=== PATIENT | male | born 1985 | race African-American/Black ===

== ENCOUNTER 2020-12-13 11:27 | Emergency (ER) | payer MEDICARE, MEDICAID ==
[~2020-12-13] VITALS: Ht 177.8 cm; Wt 77.0 kg
[2020-12-13] MEDS ORDERED: OLANZAPINE 10 MG/VIAL IM STA (12:12)
[2020-12-13] MEDS ORDERED: LORAZEPAM 2MG/ML CPJ IV STA (12:12)
[2020-12-13] MEDS ORDERED: DIPHENHYDRAMINE 50MG/ML VIAL IM STA (12:12)
[2020-12-13] MEDS ORDERED: LORAZEPAM 2MG/ML CPJ IM STA (12:12)
[2020-12-13] MEDS ORDERED: SODIUM CHLORIDE 0.9% 1,000 ML IV ONE (12:15)
[2020-12-13 14:38] LABS: CHLORIDE 112 mEq/L (98-107)
[2020-12-13 14:42] LABS: ETHANOL BLOOD < 10 mg/dL
[2020-12-13 15:04] LABS: BASOPHILS % 1.1 % (0.0-2.0); EOSINOPHILS % 1.4 % (0.0-5.0); HEMATOCRIT. 36.8 % (42.0-52.0); HEMOGLOBIN. 13.1 g/dL (14.0-18.0); MEAN CORPUSCULAR HEMOGLOBIN 32.2 pg (28.0-32.0); MEAN CORPUSCULAR VOLUME 90.6 fL (80.0-94.0); MONOCYTES % 7.8 % (2.0-8.0); NEUTROPHILS % 65.7 % (40.0-76.0); PLATELET 203 x1000/uL (130-400); RED BLOOD CELL COUNT 4.06 mill/uL (4.7-6.1); RED CELL DISTRIBUTION WIDTH 13.1 % (11.6-14.6)
[2020-12-13 15:20] LABS: CLARITY URINE CLEAR (CLEAR); COLOR URINE YELLOW (YELLOW); KETONES URINE NEGATIVE (NEGATIVE); LEUKOCYTE ESTERASE URINE NEGATIVE (NEGATIVE); NITRITE URINE NEGATIVE (NEGATIVE); OCCULT BLOOD URINE NEGATIVE (NEGATIVE); PH URINE 6.5 (4.5-8.0); PROTEIN URINE NEGATIVE (NEGATIVE); SPECIFIC GRAVITY URINE 1.007 (1.005-1.030); UROBILINOGEN URINE 0.2 E.U./dL (0.2-1.0)
[2020-12-13 15:39] LABS: *AMPHETAMINES SCREEN URINE NEGATIVE (NEGATIVE); *BARBITURATES SCREEN URINE NEGATIVE (NEGATIVE)
[2020-12-13 15:40] LABS: *BENZODIAZEPINES SCREEN URINE NEGATIVE (NEGATIVE); *COCAINE SCREEN URINE NEGATIVE (NEGATIVE); CANNABINOID URINE SCREEN NEGATIVE (NEGATIVE); METHADONE URINE SCREEN NEGATIVE (NEGATIVE); OPIATES URINE SCREEN NEGATIVE (NEGATIVE); PHENCYCLIDINE URINE SCREEN NEGATIVE (NEGATIVE)
[2020-12-14 08:00] VITALS: BP 120/99
== END 2020-12-14 08:29 | disposition home or self-care (01) ==
LOC: ER 11:27
DX: F23 Brief psychotic disorder (principal); R41.82 Altered mental status, unspecified
CPT/HCPCS: 36415; 70450; 80053; 80305; 80307; 80320; 80329; 81003; 85025; 93005; 96361; 96372; 96374; 99285; J1200; J2060; J3490; J7030; G0480